=== PATIENT | female | born 1990 | race African-American/Black ===

== ENCOUNTER 2021-06-02 16:38 | Emergency (ER) | payer BC, SELFPAY | END 2021-06-02 18:59 | disposition home or self-care (01) | LOC: ERS 16:38 | DX: G89.28 Other chronic postprocedural pain (principal) | CPT/HCPCS: 99281 ==

== ENCOUNTER 2021-08-14 17:57 | Emergency (ER) | payer SELFPAY | END 2021-08-14 20:08 | disposition home or self-care (01) | LOC: ERS 17:57 | DX: M62.838 Other muscle spasm (principal) | CPT/HCPCS: 99283 ==